=== PATIENT | female | born 1965 | race Caucasian/White ===

== ENCOUNTER 2021-06-11 10:51 | Day surgery (SDC) | payer BC ==
[2021-06-10 10:31] VITALS: BMI 40.7
[2021-06-11] MEDS ORDERED: Midazolam HCl 2 mg/2 ml Vial ONE (11:51)
[2021-06-11] MEDS ORDERED: Fentanyl 100 MCG/2 ML VIAL ONE (11:51)
[2021-06-11] MEDS ORDERED: Lidocaine 1% PF 5 ML VIAL ONE (12:30)
[2021-06-11] MEDS ORDERED: PROPOFOL 200 MG/20 ML VIAL ONE (12:30)
== END 2021-06-11 15:25 | disposition home or self-care (01) ==
LOC: MRI 10:51
PROVIDERS: ATTEND Surgery
DX: M75.122 Complete rotator cuff tear or rupture of left shoulder, not specified as traumatic (principal); M75.82 Other shoulder lesions, left shoulder; M54.12 Radiculopathy, cervical region; M48.02 Spinal stenosis, cervical region; K21.9 Gastro-esophageal reflux disease without esophagitis; I10 Essential (primary) hypertension; Z79.899 Other long term (current) drug therapy
CPT/HCPCS: 72141; J2250; J2704; J3010

== ENCOUNTER 2022-11-03 08:00 | Outpatient (CLI) | payer BC | END 2022-11-03 08:01 | disposition home or self-care (01) | PROVIDERS: ATTEND Surgery Plastic and Reconstructive Surgery | DX: S43.312 Subluxation of left scapula (principal); S14.3XXD Injury of brachial plexus, subsequent encounter; S44 Injury of nerves at shoulder and upper arm level; M25.311 Other instability, right shoulder; M25.511 Pain in right shoulder ==